=== PATIENT | female | born 1970 | race Caucasian/White ===

== ENCOUNTER → 2022-03-14 | Outpatient (CLI) | payer BC ==
--- NOTE | 2022-03-15 07:59 | MM ---
Reason for Exam: Screening (asymptomatic). Baseline mammogram. Patient History: Menarche at age 12. First Full-Term at age 29. Last menstrual period: 12/21/2021 Risk Values: Sujatha 5 year model risk: 1.1%. NCI Lifetime model risk: 9.7%. Prior Study Comparison: Patient's first Mammogram. Tissue Density: The breast tissue is heterogeneously dense. This may lower the sensitivity of mammography. Findings: Analyzed By CAD. There is no suspicious group of microcalcifications or new suspicious mass in either breast. Overall Assessment: Negative, BI-RAD 1 Management: Screening Mammogram of both breasts in 1 year. A clinical breast exam by your physician is recommended on an annual basis and results should be correlated with mammographic findings. Electronically signed and approved by: Alvaro Cabrera M.D. Radiologis
== END | disposition home or self-care (01) ==
LOC: RADMAMWWP 11:02
PROVIDERS: ATTEND Internal Medicine
DX: Z12.31 Encounter for screening mammogram for malignant neoplasm of breast (principal)
CPT/HCPCS: 77063; 77067

== ENCOUNTER → 2022-06-03 | Outpatient (CLI) | payer BC ==
[2022-06-03 14:41] LABS: Basophils # (A) 0.05 X 10*3/uL (0.00-0.10); Basophils % (A) 0.5 %; Eosinophils % (A) 5.4 %; HCT 44.7 % (37.2-46.3); HGB 14.2 g/dL (12.0-15.0); Immature Grans, Automated 0.3 %; Lymphocytes # (A) 1.24 X 10*3/uL (0.90-5.00); Lymphocytes % (A) 13.3 %; MCHC 31.8 g/dL (32.0-37.0); MCV 78.8 fL (80.0-97.0); Mean Platelet Volume 9.7 fL (9.5-12.2); Monocytes # (A) 0.46 X 10*3/uL (0.20-1.00); NRBC Per 100 WBC 0 /100 WBCS (0.0-0.0); Neutrophils # (A) 7.01 X 10*3/uL (1.80-7.70); Neutrophils % (A) 75.5 %; Platelet Count 401 X 10*3/uL (140-440); RBC 5.67 X 10*6/uL (4.10-5.20); WBC 9.29 X 10*3/uL (4.50-10.00)
[2022-06-03 14:50] LABS: African American GFR (CKD) 85.8 (60.0-200.0); Blood Urea Nitrogen 10.6 mg/dL (9.0-27.0); Potassium 4.1 mmol/L (3.5-5.5)
== END | disposition home or self-care (01) ==
LOC: LABPAT 09:00
PROVIDERS: ATTEND Obstetrics & Gynecology
DX: Z01.812 Encounter for preprocedural laboratory examination (principal); D25.9 Leiomyoma of uterus, unspecified
CPT/HCPCS: 36415; 80051; 82565; 82947; 84520; 85025; 87086

== ENCOUNTER 2022-06-11 05:50 | Inpatient (IN) | payer BC ==
[2022-06-07 10:13] VITALS: BMI 32.5
[2022-06-11] MEDS ORDERED: HYDROmorphone 0.5 MG/0.5 ML SYRINGE IVP PRN (06:03)
[2022-06-11] MEDS ORDERED: LACTATED RINGERS 1,000 ML IV SCH (06:03)
[2022-06-11] MEDS ORDERED: DEXAMETHASONE SOD PHOSPHATE 4 MG/ML 1 ML VIAL IV ONE (06:03)
[2022-06-11] MEDS ORDERED: ONDANSETRON 4 MG/2 ML VIAL IVP ONE (06:03)
[2022-06-11] MEDS ORDERED: LACTATED RINGERS 1,000 ML IV ONE (06:20)
[2022-06-11] MEDS ORDERED: MIDAZOLAM 2 MG/2 ML VIAL IVP ONE (06:44)
[2022-06-11] MEDS ORDERED: hydrALAZINE HCL 20 MG/ML 1 ML VIAL IVP ONE (06:45)
[2022-06-11] MEDS ORDERED: METOPROLOL TARTRATE 5 MG/5 ML VIAL IVP ONE (07:10)
[2022-06-11] MEDS: LACTATED RINGERS 1,000 ML IV ONE ×2 (08:25→12:55)
[2022-06-11] MEDS ORDERED: LORazepam 2 MG/ML INJ IV STA (08:35)
[2022-06-11] MEDS ORDERED: amLODIPine 5 MG TAB PO SCH (10:00)
--- NOTE | 2022-06-11 10:02 | P.HPIM ---
History of Present Illness H&P Date: 06/11/22 Chief Complaint: HTN Patient is a 51-year-old female with dysmenorrhea, uterine fibroids, and hypothyroidism with initially presented to the hospital for hysterectomy. Bone preop she was discovered to have severely elevated blood pressures at 213/125. She was given hydralazine and metoprolol without significant improvement. I was called by Dr. Olivera to admit the patient for hypertensive urgency. Patient seen and examined at bedside. She reports that she has a history of whitecoat hypertension. She states her blood pressure is commonly greater than 180 when in the office being seen. She does monitor her blood pressures at home. She states she last checked home blood pressure about 2 weeks ago. She states that her low pressures at home typically run 130s to 140s over 80s to 90s. She is currently feeling very upset and anxious about her procedure being canceled. She states that everything to get here to the hospital to have the procedure done. She is upset and crying. She denies any current chest pain, shortness of breath, headache, lightheadedness, dizziness, changes in vision. She denies any nausea. She reports she was in her usual state of health other than her pain and bleeding issues prior to hospitalization. Denies family hx of heart disease in partents and siblings. Pertinent positives and negatives as discussed in HPI, a complete review of systems was performed and all other systems are negative. Vital signs reviewed General: nontoxic, no distress, appears at stated age Derm: warm, dry Head: atraumatic, normocephalic, symmetric Eyes: EOMI, no lid lag, anicteric sclera, pupils equal round reactive to light ENT: Nose and ears atraumatic, no thrush, no pharyngeal erythema Neck: No thyromegaly, no cervical lymphadenopathy, trachea midline, supple Mouth: no lip lesion, mucus membranes moist Cardiovascular: S1S2 reg, no murmur, positive posterior tibial pulse bilateral, no edema, capillary refill less than 2 seconds Lungs: clear to auscultation bilateral, no rhonchi, no rales, no wheeze, no accessory muscle use Abdominal: soft, nontender to palpation, no guarding, no appreciable organomegaly, normal bowel sounds Ext: no gross muscle atrophy, muscle strength 5 out of 5 in upper extremities, no contractures Neuro: CN II-XII grossly intact, no focal neuro deficits Psych: Alert, oriented, anxious, upset crying. Assessment/Plan: Hypertensive urgency -Patient without underlying diagnosed hypertension, though it appears she is likely hypertension stage I -Ativan 1 now due to anxiety component. -Status post hydralazine and metoprolol - follow bp - Place patient in observation - BP was still eveleated but much improved after 1 hour, Norvasc X 1 now. Likelt home this afternoon if SBP <180 with close outpatient follow up Dysmenorrhea - OUtpatient follow up with Dr. Olivera Case discussed and would like BP controlled before surgery and patient optimized by PCP Hypothyroidism with hx of goiter - Levothyroxine - suggest outpatient TSH given HTN The patient is admitted with an anticipated less than 2 midnight stay for evaluation of [HTN Urgency]. DVT prophylaxis: SCDs Discussed with: Patient, nursing Anticipated discharge date: this afternoon or in AM pending BP control. Anticipated discharge place: home A total of 65 minutes was spent on the care of this complex patient more than 50% of the time was spent in counseling and care coordination. Past Medical History Past Medical History: Thyroid Disorder Additional Past Medical History / Comment(s): HX GOITER-HAD THYROID REMOVED History of Any Multi-Drug Resistant Organisms: None Reported Past Surgical History: Section Additional Past Surgical History / Comment(s): C-SEC X 3. THYROIDECTOMY w/ goiter removed Past Anesthesia/Blood Transfusion Reactions: Postoperative Nausea & Vomiting (PONV) Additional Past Anesthesia/Blood Transfusion Reaction / Comment(s): no blood transfusion hx Smoking Status: Never smoker - Past Family History Mother Family Medical History: Cancer Additional Family Medical History / Comment(s): pancreatic CA at age 58 Medications and Allergies Home Medications Medication Instructions Recorded Confirmed Type Levothyroxine Sodium [Synthroid] 150 mcg PO QAM 05/01/22 06/07/22 History Allergies Allergy/AdvReac Type Severity Reaction Status Date / Time No Known Allergies Allergy Verified 06/07/22 10:06 Physical Exam Osteopathic Statement: *. No significant issues noted on an osteopathic structural exam other than those noted in the History and Physical/Consult. Vitals: Vital Signs Temp Pulse Resp BP BP Pulse Ox 06/11/22 09:30 82 18 184/97 96 06/11/22 09:00 94 18 199/113 98 06/11/22 08:25 97.5 F L 93 18 217/125 98 06/11/22 07:23 213/127 06/11/22 07:18 79 18 213/127 97 06/11/22 07:09 84 16 214/109 98 06/11/22 06:51 90 18 193/108 96 06/11/22 06:15 98.5 F 90 18 238/131 98 Intake and Output 06/10/22 06/11/22 06/11/22 22:59 06:59 14:59 Intake Total 500 Balance 500 Intake: IV 500 Other: Weight 91.7 kg Thrombosis Risk Factor Assmnt - Choose All That Apply Each Factor Represents 1 point: Age 41-60 years, History of: Thrombosis Risk Factor Assessment Total Risk Factor Score: 2 Thrombosis Risk Factor Assessment Level: Low Risk
[2022-06-11] MEDS ORDERED: LORazepam 1 MG/0.5 ML VIAL IV STA (12:21)
[2022-06-11] MEDS ORDERED: cloNIDine HCL 0.1 MG TAB PO PRN (12:22)
[2022-06-11] MEDS ORDERED: amLODIPine 5 MG TAB PO STA (16:08)
[2022-06-11] MEDS ORDERED: cloNIDine HCL 0.2 MG TAB PO PRN (16:11)
[2022-06-11] MEDS: diazePAM 2 MG TAB PO PRN (16:16)
[2022-06-11 16:34] LABS: Anisocytosis Slight; HCT 48.3 % (34.0-46.0); HGB 15.1 gm/dL (11.4-16.0); MCH 25.4 pg (25.0-35.0); MCHC 31.4 g/dL (31.0-37.0); Mean Platelet Volume 7.2; Microcytosis Slight; Platelet Count 368 k/uL (150-450); RBC 5.96 m/uL (3.80-5.40); RDW 16.9 % (11.5-15.5); WBC 12.4 k/uL (3.8-10.6)
[2022-06-11 16:42] LABS: African American GFR (CKD) >90 (>60 ml/min/1.73 sqM); Anion Gap 11 mmol/L; Blood Urea Nitrogen 12 mg/dL (7-17); Calcium 9.1 mg/dL (8.4-10.2); Carbon Dioxide 25 mmol/L (22-30); Chloride 100 mmol/L (98-107); Glucose 123 mg/dL (74-99); Magnesium 1.7 mg/dL (1.6-2.3); Non-African American GFR(CKD) 86 (>60 ml/min/1.73 sqM); Sodium 136 mmol/L (137-145)
[2022-06-11] MEDS ORDERED: METOPROLOL TARTRATE 12.5 MG TAB PO STA (18:09)
[2022-06-11] MEDS: METOPROLOL TARTRATE 12.5 MG TAB PO SCH (19:54)
[2022-06-12] MEDS: METOPROLOL TARTRATE 12.5 MG TAB PO SCH (07:56)
[2022-06-12] MEDS ORDERED: METOPROLOL TARTRATE 25 MG TAB PO SCH (09:00)
[2022-06-12] MEDS ORDERED: amLODIPine 10 MG TAB PO SCH (09:00)
[2022-06-12 11:39] VITALS: TEMP 97.4
[2022-06-12] MEDS: diazePAM 2 MG TAB PO PRN (11:56)
[2022-06-12] MEDS ORDERED: LEVOTHYROXINE 75 MCG TAB PO SCH (13:00)
[2022-06-12 14:54] VITALS: BP 122/75; PULSE 68; RESP 18
--- NOTE | 2022-06-12 14:57 | P.DS ---
Providers Date of admission: 06/11/22 11:09 Expected date of discharge: 06/12/22 Attending physician: Daphne Allen DO Primary care physician: Anne Sullivan - Discharge Diagnosis(es) (1) Hypertensive urgency Current Visit: Yes Status: Acute Hospital Course: Admitting diagnosis: Hypertensive urgency Discharge diagnosis: Hypertension controlled Dysmenorrhea Uterine fibroids Hypothyroid Obesity Anxiety Patient is a 51-year-old female with dysmenorrhea, uterine fibroids, and hypothyroidism with initially presented to the hospital for hysterectomy. Bone preop she was discovered to have severely elevated blood pressures at 213/125. She was given hydralazine and metoprolol without significant improvement. Hospitalist was called by Dr. Olivera to admit the patient for hypertensive urgency. Patient seen and examined at bedside. She reports that she has a history of white coat hypertension. She states her blood pressure is commonly greater than 180 when in the office being seen. She does monitor her blood pressures at home. She states she last checked home blood pressure about 2 weeks ago. She states that her low pressures at home typically run 130s to 140s over 80s to 90s. She is currently feeling very upset and anxious about her procedure being canceled. She states that everything to get here to the hospital to have the procedure done. She is upset and crying. She denies any current chest pain, shortness of breath, headache, lightheadedness, dizziness, changes in vision. She denies any nausea. She reports she was in her usual state of health other than her pain and bleeding issues prior to hospitalization. Denies family hx of heart disease in partents and siblings. Pertinent positives and negatives as discussed in HPI, a complete review of systems was performed and all other systems are negative. General: [non toxic], [no distress], [appears at stated age] Derm: [warm], [dry] Head: [atraumatic], [normocephalic], [symmetric] Eyes: [EOMI], [no lid lag], [anicteric sclera] Mouth: [no lip lesion], [mucus membranes moist] Cardiovascular: [S1S2 reg], [no murmur], [positive posterior tibial pulse bilateral], Lungs: [CTA bilateral], [no rhonchi, no rales] , [no accessory muscle use] Abdominal: [soft], [ nontender to palpation], [no guarding], [no appreciable organomegaly] Ext: [no gross muscle atrophy], [no edema], [no contractures] Neuro: [ CN II-XI grossly intact], [no focal neuro deficits] Psych: [Alert], [oriented], [anxious] Clinical Course: Hypertensive urgency resolved -Patient without underlying diagnosed hypertension, though it appears she is likely hypertension stage I -Benzodiazapines prn anxiety provided -Clonidine, metoprolol, and amlodipine prescribed - follow bp Dysmenorrhea - Outpatient follow up with Dr. Olivera Case discussed and would like BP controlled before surgery and patient optimized by PCP Hypothyroidism with hx of goiter - Levothyroxine - TSH within normal limits Diet Cardiac Activity as tolerated Disposition Home f/u with PCP in 3-7 days f/u with CONVEYOR OPERATOR in 1-2 weeks Patient Condition at Discharge: Fair Plan - Discharge Summary Discharge Rx Participant: Yes New Discharge Prescriptions: New cloNIDine HCL [Catapres] 0.2 mg PO TID PRN #90 tab PRN Reason: Blood Pressure - High Metoprolol Tartrate [Lopressor] 25 mg PO BID #60 tab amLODIPine [Norvasc] 10 mg PO DAILY #30 tab Levothyroxine Sodium [Synthroid] 150 mcg PO DAILY@0630 tab Continue Levothyroxine Sodium [Synthroid] 150 mcg PO QAM Discharge Medication List Levothyroxine Sodium [Synthroid] 150 mcg PO QAM 05/01/22 [History] Levothyroxine Sodium [Synthroid] 150 mcg PO DAILY@0630 tab 06/12/22 [Rx] Metoprolol Tartrate [Lopressor] 25 mg PO BID #60 tab 06/12/22 [Rx] amLODIPine [Norvasc] 10 mg PO DAILY #30 tab 06/12/22 [Rx] cloNIDine HCL [Catapres] 0.2 mg PO TID PRN #90 tab 06/12/22 [Rx] Discharge Disposition: HOME SELF-CARE Plan of Treatment: FOLLOW-UP WITH PCP IN 2-3 DAYS FOR HOSPITAL FOLLOW-UP. FOLLOW-UP WITH CONVEYOR OPERATOR FOR HYSTERECTOMY IN 1-2 WEEKS.
== END 2022-06-12 15:36 | disposition home or self-care (01) | DRG 305 ==
LOC: OR 05:50 → 3SCARD 11:09
PROVIDERS: ADMIT Internal Medicine; ATTEND Internal Medicine
DX: I16.0 Hypertensive urgency (principal); F41.9 Anxiety disorder, unspecified; N94.6 Dysmenorrhea, unspecified; E89.0 Postprocedural hypothyroidism; Z53.09 Procedure and treatment not carried out because of other contraindication; Z68.33 Body mass index [BMI] 33.0-33.9, adult; E04.9 Nontoxic goiter, unspecified; E66.9 Obesity, unspecified; I10 Essential (primary) hypertension; Z79.890 Hormone replacement therapy; Z90.710 Acquired absence of both cervix and uterus
CPT/HCPCS: 80048; 83735; 84443; 85027; 86850; 86900; 86901

== ENCOUNTER → 2022-07-29 | Outpatient (CLI) | payer BC ==
[2022-07-29 11:17] LABS: Appearance,Urine Clear (Clear); Bilirubin,Urine Negative (Negative); Blood,Urine Negative (Negative); Color,Urine Light Yellow; Glucose,Urine (UA) Negative (Negative); Ketones,Urine Negative (Negative); Leukocyte Esterase,Urine Negative (Negative); Nitrite,Urine Negative (Negative); PH, Urine 5.5 (5.0-8.0); Protein,Urine Negative (Negative); Specific Gravity,Urine 1.018 (1.001-1.035); Urobilinogen,Urine <2.0 mg/dL (<2.0)
[2022-07-29 15:35] LABS: Basophils # (A) 0.05 X 10*3/uL (0.00-0.10); Basophils % (A) 0.6 %; Eosinophils # (A) 0.49 X 10*3/uL (0.04-0.35); Eosinophils % (A) 5.5 %; HCT 46.9 % (37.2-46.3); HGB 15.3 g/dL (12.0-15.0); Immature Grans, Automated 0.3 %; Lymphocytes # (A) 1.14 X 10*3/uL (0.90-5.00); Lymphocytes % (A) 12.9 %; MCH 26.8 pg (27.0-32.0); MCHC 32.6 g/dL (32.0-37.0); MCV 82.1 fL (80.0-97.0); Mean Platelet Volume 9.8 fL (9.5-12.2); Monocytes # (A) 0.47 X 10*3/uL (0.20-1.00); Monocytes % (A) 5.3 %; NRBC Per 100 WBC 0 /100 WBCS (0.0-0.0); Neutrophils # (A) 6.67 X 10*3/uL (1.80-7.70); Neutrophils % (A) 75.4 %; Platelet Count 390 X 10*3/uL (140-440); RBC 5.71 X 10*6/uL (4.10-5.20); RDW 15.7 % (11.5-14.5); WBC 8.85 X 10*3/uL (4.50-10.00)
[2022-07-29 16:15] LABS: Anion Gap 10.7 mmol/L (10.00-18.00); Blood Urea Nitrogen 12.4 mg/dL (9.0-27.0); Carbon Dioxide 26.9 mmol/L (20.0-27.5); Non-African American GFR(CKD) 78.6 (60.0-200.0); Potassium 4.7 mmol/L (3.5-5.5)
== END | disposition home or self-care (01) ==
LOC: LABPAT 08:51
PROVIDERS: ATTEND Obstetrics & Gynecology Obstetrics
DX: Z01.818 Encounter for other preprocedural examination (principal)
CPT/HCPCS: 80051; 81003; 82565; 82947; 84520; 85025

== ENCOUNTER 2022-08-05 07:32 | Day surgery (SDC) | payer BC ==
[2022-07-30 14:32] VITALS: BMI 32.3
[2022-08-05] MEDS ORDERED: LACTATED RINGERS 1,000 ML IV SCH (07:48)
[2022-08-05] MEDS ORDERED: ONDANSETRON 4 MG/2 ML VIAL ONE (08:10)
[2022-08-05] MEDS ORDERED: DEXAMETHASONE SOD PHOSPHATE 4 MG/ML 1 ML VIAL IV ONE (08:25)
[2022-08-05] MEDS ORDERED: ONDANSETRON 4 MG/2 ML VIAL IVP ONE (08:25)
[2022-08-05] MEDS ORDERED: SCOPOLAMINE 1 MG/72 HR PATCH TRANSDERM ONE (08:25)
[2022-08-05] MEDS ORDERED: MIDAZOLAM 2 MG/2 ML VIAL IV ONE (08:34)
[2022-08-05] MEDS ORDERED: ONDANSETRON 4 MG/2 ML VIAL IVP PRN (08:43)
[2022-08-05] MEDS ORDERED: NALBUPHINE 10 MG/ML (1 ML AMP) IV PRN (08:43)
[2022-08-05] MEDS ORDERED: NALOXONE 0.4 MG/ML 1 ML VIAL IV PRN (08:43)
[2022-08-05] MEDS ORDERED: HYDROmorphone 0.5 MG/0.5 ML SYRINGE IVP PRN (08:43)
--- NOTE | 2022-08-05 08:44 | P.ANPRN ---
Procedure Note - Anesthesia - Epidural/Spinal Spinal Time Out Performed: Yes Date of Procedure: 08/05/22 Procedure Start Time: 08:33 Procedure Stop Time: 08:44 Location of Patient: PreOp Indication: Acute Post-Operative Pain, Requested by Surgeon Sedation Type: Sedate with meaningful contact maintained Preparation: Sterile Dressing Position: Sitting Catheter: None Needle Guage: 25 Narrative: bupivacaine 0.75% 5 mg + duramorph 0.3 mg + fentanyl 25 mcg Blood Aspirated: No Pain Paresthesia on Injection Noted: No Events: Uneventful and Well Tolerated
--- NOTE | 2022-08-05 09:00 | P.HPOB ---
History of Present Illness H&P Date: 08/05/22 Chief Complaint: Enlarged uterus, uterine fibroids This is a 51-year-old female that presents for robotic-assisted vaginal hysterectomy with bilateral salpingectomy, diagnostic cystoscopy. Patient was seen in the office ultrasound was performed enlarged uterus of 16 cm was appreciated with 8-9 cm uterine fibroid. Patient is a known patient of Dr. Womack's, patient was seen for increasing dysmenorrhea, and heavy menstrual bleeding. Patient notes her menstrual cycles to be slightly irregular. An extended bleeding pattern is appreciated. ultrasound was obtained at that time. Patient does elect definitive treatment given ultrasound findings. Past Medical History Past Medical History: Hypertension, Thyroid Disorder Additional Past Medical History / Comment(s): HX GOITER, hx migraines, History of Any Multi-Drug Resistant Organisms: None Reported Past Surgical History: Section Additional Past Surgical History / Comment(s): C-SEC X 3, THYROIDECTOMY, surgery to remove scar tissue from C/S incision Past Anesthesia/Blood Transfusion Reactions: Postoperative Nausea & Vomiting (PONV) Additional Past Anesthesia/Blood Transfusion Reaction / Comment(s): no blood transfusion hx Smoking Status: Never smoker - Past Family History Mother Family Medical History: Cancer Additional Family Medical History / Comment(s): pancreatic CA at age 58 Medications and Allergies Home Medications Medication Instructions Recorded Confirmed Type Levothyroxine Sodium [Synthroid] 150 mcg PO QAM 05/01/22 08/05/22 History Metoprolol Tartrate [Lopressor] 25 mg PO BID #60 tab 06/12/22 08/05/22 Rx cloNIDine HCL [Catapres] 0.2 mg PO TID PRN #90 tab 06/12/22 08/05/22 Rx Losartan Potassium [Cozaar] 100 mg PO QAM 07/30/22 08/05/22 History Multivitamins, Thera [Multivitamin 1 tab PO DAILY 07/30/22 07/30/22 History (formulary)] Vitamin B12(Dose Unknown) 1 tab PO DIRECTED 07/30/22 08/05/22 History Vitamin C(Dose Unknown) 1 tab PO DIRECTED 07/30/22 08/05/22 History Vitamin D(Dose Unknown) 1 tab PO DAILY 07/30/22 08/05/22 History Allergies Allergy/AdvReac Type Severity Reaction Status Date / Time No Known Allergies Allergy Verified 08/05/22 07:53 Exam Osteopathic Statement: *. No significant issues noted on an osteopathic structural exam other than those noted in the History and Physical/Consult. Vital Signs Temp Pulse Resp BP Pulse Ox 08/05/22 08:49 61 16 125/75 97 08/05/22 07:57 97.4 F L 73 16 167/102 100 Intake and Output 08/04/22 08/05/22 08/05/22 22:59 06:59 14:59 Other: Weight 90.6 kg Targeted physical exam is performed in this date and cloud engagement partner a well-nourished well-developed non female in no acute distress, breathing is nonlabored, heart has a regular rate and rhythm, abdomen is obese soft nontender, genitourinary exam the uterus is noted to be grossly enlarged, no adnexal masses are appreciated Assessment and Plan (1) Enlarged uterus Current Visit: Yes Status: Acute Code(s): N85.2 - HYPERTROPHY OF UTERUS SNOMED Code(s): 315863467 (2) Uterine fibroid Current Visit: Yes Status: Acute Code(s): D25.9 - LEIOMYOMA OF UTERUS, UNSPECIFIED SNOMED Code(s): 68251187 Plan: 51-year-old female with known enlarged uterus and uterine fibroid. Patient elects definitive treatment today. Patient is counseled on risks of surgery given her prior C-sections. Risser reviewed including but not limited to infection, bleeding, damage to bladder, bowel, ureteric injury.. Patient states understanding. She does wish definitive treatment once again with robotic cyst vaginal hysterectomy, bilateral salpingectomy, diagnostic cystoscopy.
[2022-08-05] MEDS ORDERED: BUPIVACAINE (PF) 0.25% 30 ML VIAL SQ ONE ×2 (10:21)
[2022-08-05] MEDS ORDERED: Acetaminophen-Codeine 300-30mg TAB PO PRN ×2 (12:54)
[2022-08-05] MEDS ORDERED: ACETAMINOPHEN IV (For NPO) 1,000 MG in EMPTY BAG 1 BAG IVPB ONE (12:54)
[2022-08-05] MEDS ORDERED: SIMETHICONE 80 MG CHEWABLE PO PRN (12:54)
[2022-08-05] MEDS ORDERED: cloNIDine HCL 0.2 MG TAB PO PRN (12:56)
--- NOTE | 2022-08-05 13:03 | P.OP ---
Date of Procedure: 08/05/22 Preoperative Diagnosis: Enlarged uterus, uterine fibroid, heavy menstrual bleeding Postoperative Diagnosis: Same Procedure(s) Performed: Robotic cyst vaginal hysterectomy, diagnostic cystoscopy, lysis of adhesions Anesthesia: JOHANN Surgeon: Sydni Olivera Dry Janitor #1: Manuela Lobato Estimated Blood Loss (ml): 100 IV fluids (ml): 1,400 Urine output (ml): 100 Pathology: other (Uterus cervix multiple fibroid pieces) Condition: stable Disposition: PACU Indications for Procedure: Irregular heavy menstrual bleeding, known uterine fibroid with desire for definitive treatment. Operative Findings: Grossly enlarged uterus with fundal fibroid. Description of Procedure: Patient was taken back to the operating suite where general anesthesia was obtained without difficulty by the anesthesia department. Patient was then prepped and draped in normal sterile fashion in the dorsal lithotomy position. A To catheter was placed per sterile technique. A weighted speculum was placed in the posterior vaginal vault the anterior lip the cervix was visualized and grasped with a single-tooth tenaculum. The [facility] uterine manipulator was advanced into the uterus as a means to manipulate the uterus throughout the procedure. The cervical cap was placed snugly against the cervix and all instruments were removed from the patient's vaginal vault. Attention turned the patient's abdomen. Approximately 2 finger breaths above the umbilicus a small skin incision is made. Through this incision the various needles placed. Once the Veress needle was deemed to be in the appropriate position with a drop of CO2 pressure CO2 insufflation was allowed to occur. At this time an 8 mm trocar and sleeve is placed through the skin incision and toward the pneumoperitoneum under direct visualization. The above-noted findings are visualized. At this time the additional port sites are placed 10 cm lateral lateral and 370 m inferior to the midline port these are 8 mm operative ports and the da Awa machine. In the left upper quadrant a 12 mm trocar and sleeve is placed under direct visualization. Attention was then turned to a large omental adhesion to the anterior abdominal wall. This was taken down sharply with good hemostasis being appreciated throughout. Once this was taken down the uterus was elevated. The uterine fibroid was visualized. The patient's left adnexa was visualized and the uterine ovarian ligament was visualized coagulated distally and proximally and divided. This continued through the broad and toward the round which was coagulated and transected. Hemostasis. The adhesions were appreciated from her prior C-sections. These were taken down sharply. The bladder flap was then created. The infant branch the uterine artery was visualized coagulated and transected. Hemostasis was appreciated throughout. Attention was then turned the patient's right adnexa. The right uterine ovarian ligament was visualized coagulated and transected. Hemostasis was noted. This continued through the broad and toward the round ligament which was coagulated and transected. The bladder flap from the right was then carefully developed. At this point a Ray-Keila was introduced into the abdomen as a means to carefully dissect the bladder away from the operating field even further. Dense anterior adhesions were taken down sharply. Urine was noted be clear in the To catheter and tube. At this point the ascending branch of the uterine artery on the right was visualized coagulated and transected. Hemostasis was appreciated. At this time the only remaining attachment was a vaginal attachment therefore colpotomy incision was made and circumference of fashion. The uterus was then freed from the vaginal cuff. At this time the fundal fibroid was transected and cut into 3 pieces. The uterus was delivered from the vaginal cuff along with the pieces of the fibroid. 2 were placed in Endo Catch bags to use removal. At this time the pelvis was then copiously irrigated. Hewas appreciated. The vaginal cuff was closed 0 Vicryl with multiple [id number] sutures. The cuff was irrigated once again and found to be hemostatic. The omental adhesions were visualized and found to be slightly oozy therefore Surgicel powder was placed along. The rest of the Surgicel powder was then placed along the vaginal cuff. Hemostasis was noted. At this time all instruments removed from the patient's abdomen. Attention was then turned the patient's To catheter which was noted to have clear yellow urine in the To tube. This was removed without difficulty. Cystoscopy was then performed. Cystoscope was placed through the urethra and toward the bladder bladder bubbles appreciated complete survey of the bladder revealed an intact cavity both ureteral orifices were noted spilling clear yellow urine. At this time the cystoscope was removed and the To catheter was replaced. The vaginal vault was inspected and no lacerations were appreciated. At this time the attention turned the patient's abdomen once again. The skin incisions were closed with 4-0 Vicryl in a subcu fashion. Steri-Strips and sterile dressings were applied. All counts were noted to be correct 2 at the end of the procedure, patient tolerated procedure well and was taken recovery room awake in stable condition.
[2022-08-05] MEDS: SENNOSIDES-DOCUSATE SODIUM 1 EACH TAB PO SCH (21:46)
[2022-08-05] MEDS: METOPROLOL TARTRATE 25 MG TAB PO SCH (21:46)
[2022-08-05] MEDS: IBUPROFEN 600 MG TAB PO PRN (23:35)
[2022-08-06 04:51] LABS: Basophils % (A) 0 %; Eosinophils % (A) 0 %; HCT 38.9 % (34.0-46.0); HGB 12.4 gm/dL (11.4-16.0); Lymphocytes # (A) 1.1 k/uL (1.0-4.8); Lymphocytes % (A) 10 %; MCH 27.5 pg (25.0-35.0); MCHC 31.9 g/dL (31.0-37.0); Mean Platelet Volume 7.7; Monocytes # (A) 0.5 k/uL (0-1.0); Monocytes % (A) 4 %; Neutrophils # (A) 9.8 k/uL (1.3-7.7); Neutrophils % (A) 85 %; Platelet Count 332 k/uL (150-450); RBC 4.51 m/uL (3.80-5.40); RDW 15.2 % (11.5-15.5); WBC 11.6 k/uL (3.8-10.6)
[2022-08-06 04:58] LABS: MCV 86.3 fL (80.0-100.0)
[2022-08-06] MEDS ORDERED: LEVOTHYROXINE 75 MCG TAB PO SCH (06:30)
--- NOTE | 2022-08-06 06:33 | P.PN ---
Progress Note - Text Progress Note Date: 08/06/22 POD 1 from [facility] with spinal duramorph. no pain overnight. able to ambulate, minimal pruritis. pain 10/01 today. able to micturate and pass gas.
--- NOTE | 2022-08-06 08:43 | P.DS ---
Providers Date of admission: 08/05/2022 Expected date of discharge: 08/06/22 Attending physician: Sydni Olivera Primary care physician: Anne Sullivan - Discharge Diagnosis(es) (1) Enlarged uterus Current Visit: Yes Status: Acute (2) Uterine fibroid Current Visit: Yes Status: Acute (3) S/P laparoscopic hysterectomy Current Visit: Yes Status: Acute Hospital Course: This is a 51-year-old female that presented yesterday 08/05 for scheduled robotic cyst vaginal hysterectomy with diagnostic cystoscopy. For full details on this patient please see the dictated history and physical Patient had known irregular heavy menstrual cycles with enlarged uterus, uterine fibroids. Patient had been counseled extensively in the office regarding this procedure. Patient was taken back to the operating suite where procedure was performed without difficulty. For full details on the procedure please see the operative report. On this postoperative day #1 she is feeling well. She denies pain. We are awaiting spontaneous void. She denies vaginal bleeding. She denies nausea or vomiting is tolerating clear liquids. Patient Condition at Discharge: Good Plan - Discharge Summary Discharge Rx Participant: Yes New Discharge Prescriptions: No Action Levothyroxine Sodium [Synthroid] 150 mcg PO QAM cloNIDine HCL [Catapres] 0.2 mg PO TID PRN #90 tab PRN Reason: Blood Pressure - High Losartan Potassium [Cozaar] 100 mg PO QAM Multivitamins, Thera [Multivitamin (formulary)] 1 tab PO DAILY Vitamin C(Dose Unknown) 1 tab PO DIRECTED Vitamin B12(Dose Unknown) 1 tab PO DIRECTED Metoprolol Tartrate [Lopressor] 25 mg PO BID #60 tab Vitamin D(Dose Unknown) 1 tab PO DAILY Discharge Medication List Levothyroxine Sodium [Synthroid] 150 mcg PO QAM 05/01/22 [History] Metoprolol Tartrate [Lopressor] 25 mg PO BID #60 tab 06/12/22 [Rx] cloNIDine HCL [Catapres] 0.2 mg PO TID PRN #90 tab 06/12/22 [Rx] Losartan Potassium [Cozaar] 100 mg PO QAM 07/30/22 [History] Multivitamins, Thera [Multivitamin (formulary)] 1 tab PO DAILY 07/30/22 [History] Vitamin B12(Dose Unknown) 1 tab PO DIRECTED 07/30/22 [History] Vitamin C(Dose Unknown) 1 tab PO DIRECTED 07/30/22 [History] Vitamin D(Dose Unknown) 1 tab PO DAILY 07/30/22 [History] Follow up Appointment(s)/Referral(s): Sydni Olivera DO [Doctor of Osteopathic Medicine] - 2 Weeks Patient Instructions/Handouts: *Surgery [facility] - Scopalamine Patch Instructions, Laparoscopic Hysterectomy (DC), Laparoscopic Hysterectomy (GEN) Activity/Diet/Wound Care/Special Instructions: Patient is counseled on postoperative care. She is counseled she may have spotting/vaginal bleeding postoperatively. Incision care was reviewed. [id number] ibuprofen and Tylenol as needed for pain. She is asked to call the office and make a routine postoperative check in 2 weeks. Should she have any concerns prior to this appointment she is asked call the office. Discharge Disposition: HOME SELF-CARE
[2022-08-06] MEDS ORDERED: LOSARTAN 50 MG TAB PO SCH (09:00)
[2022-08-06 09:14] VITALS: BP 119/73; PULSE 73; RESP 14; TEMP 97.5
[2022-08-06] MEDS: METOPROLOL TARTRATE 25 MG TAB PO SCH (09:23)
[2022-08-06] MEDS: SENNOSIDES-DOCUSATE SODIUM 1 EACH TAB PO SCH (09:24)
[2022-08-06] MEDS: IBUPROFEN 600 MG TAB PO PRN ×2 (09:24→15:03)
[2022-08-06] MEDS ORDERED: ACETAMINOPHEN TAB 325 MG TAB PO PRN (12:56)
== END 2022-08-06 15:15 | disposition home or self-care (01) ==
LOC: OR 07:32 → 4FBP 15:55 → OR 08-06 15:15
PROVIDERS: ATTEND Obstetrics & Gynecology Obstetrics
DX: D25.1 Intramural leiomyoma of uterus (principal); N92.0 Excessive and frequent menstruation with regular cycle; N80.03 Adenomyosis of the uterus; G89.18 Other acute postprocedural pain; I10 Essential (primary) hypertension; E07.9 Disorder of thyroid, unspecified; Z80.8 Family history of malignant neoplasm of other organs or systems; Z79.899 Other long term (current) drug therapy
CPT/HCPCS: 81025; 86900; 86901; 85025; 86850; 88307; 58550; J2250; J1100; J0690; J2405

== ENCOUNTER → 2025-02-28 | Outpatient (CLI) | payer BC ==
--- NOTE | 2025-02-28 09:43 | MM ---
Reason for Exam: Screening (asymptomatic). Last mammogram was performed 3 year(s) and 0 month(s) ago. Patient History: Menarche at age 12. First Full-Term at age 29. Hysterectomy at age 50. Risk Values: Sujatha 5 year model risk: 1.3%. NCI Lifetime model risk: 9.3%. Prior Study Comparison: 03/14/2022 Bilateral MG 3D screening mammo w/cad, [facility]. Tissue Density: There are scattered areas of fibroglandular density. Findings: Analyzed By CAD. Benign-appearing bilateral axillary lymph nodes are present. There is no suspicious group of microcalcifications or new suspicious mass in either breast.Benign-appearing bilateral axillary lymph nodes are present. There is a new 8 mm circumscribed round mass in the middle of the centimeters distance from nipple. Overall Assessment: Incomplete: need additional imaging evaluation, BI-RAD 0 Management: Diagnostic Mammogram of the right breast. Diagnostic Breast Ultrasound of the right breast. Advised 3-D true lateral view to localize and then diagnostic targeted ultrasound right breast. Patient should continue monthly self-breast exams. A clinical breast exam by your physician is recommended on an annual basis. This exam should not preclude additional follow-up of suspicious palpable abnormalities. Note on Sujatha scores and lifetime risk: 1. A Sujatha score greater than 3% is considered moderate risk. If this is the case, consider specialist referral to assess eligibility for a risk reducing agent. 2. If overall lifetime risk for the development of breast cancer is 20% or higher, the patient may qualify for future screening with alternating mammogram and breast MRI. [facility], , 02/28/2025 9:42 AM. Electronically signed and approved by: Yuniel Wei M.D.
== END | disposition home or self-care (01) ==
LOC: RADMAMWWP 09:17
PROVIDERS: ATTEND Internal Medicine
DX: Z12.31 Encounter for screening mammogram for malignant neoplasm of breast (principal); R92.323 Mammographic fibroglandular density, bilateral breasts
CPT/HCPCS: 77063; 77067

== ENCOUNTER → 2025-03-02 | Outpatient (CLI) | payer BC ==
--- NOTE | 2025-03-02 08:12 | MM ---
Reason for Exam: Additional evaluation requested from abnormal screening. Last mammogram was performed 3 year(s) and 0 month(s) ago. Patient History: Menarche at age 12. First Full-Term at age 29. Hysterectomy at age 50. Risk Values: Sujatha 5 year model risk: 1.3%. NCI Lifetime model risk: 9.3%. Prior Study Comparison: 03/14/2022 Bilateral MG 3D screening mammo w/cad, [facility]. 02/28/2025 Bilateral MG 3D screening mammo w/cad, [facility]. Tissue Density: Right: There are scattered areas of fibroglandular density. Findings: Analyzed By CAD. An 8 mm oval circumscribed mass persists 8 - 9 cm distance from the nipple middle depth inferior aspect right breast. Overall Assessment: Incomplete: need additional imaging evaluation, BI-RAD 0 Management: Diagnostic Breast Ultrasound of the right breast. . Results were given to the patient verbally at the time of exam. Patient should continue monthly self-breast exams. A clinical breast exam by your physician is recommended on an annual basis. This exam should not preclude additional follow-up of suspicious palpable abnormalities. Note on Sujatha scores and lifetime risk: 1. A Sujatha score greater than 3% is considered moderate risk. If this is the case, consider specialist referral to assess eligibility for a risk reducing agent. 2. If overall lifetime risk for the development of breast cancer is 20% or higher, the patient may qualify for future screening with alternating mammogram and breast MRI. [facility], , 03/02/2025 8:09 AM. Electronically signed and approved by: Yuniel Wei M.D.
--- NOTE | 2025-03-02 08:31 | USB ---
Reason for Exam: Additional evaluation requested from abnormal screening. Patient History: Menarche at age 12. First Full-Term at age 29. Hysterectomy at age 50. Risk Values: Sujatha 5 year model risk: 1.3%. NCI Lifetime model risk: 9.3%. Technique: Method: Targeted. Prior Study Comparison: 03/14/2022 Bilateral MG 3D screening mammo w/cad, [facility]. 02/28/2025 Bilateral MG 3D screening mammo w/cad, [facility]. Findings: The lower outer quadrant of the right breast, the axilla of the right breast and the retroareolar of the right breast were scanned. Targeted ultrasound. At 7:00 position 9 cm distance from nipple there is oval circumscribed 7 x 3 x 7 mm avascular slightly hypoechoic to anechoic lesion tapering simple cyst. Benign-appearing lymph node in the right axilla also seen. Overall Assessment: Probably benign, BI-RAD 3 Management: Diagnostic Mammogram of the right breast in 6 months. Diagnostic Breast Ultrasound of the right breast in 6 months. Precautionary short-term follow-up study. A clinical breast exam by your physician is recommended on an annual basis and results should be correlated with mammographic findings. This exam should not preclude additional follow-up of suspicious palpable abnormalities. Results were given to the patient verbally at the time of exam. [facility], , 03/02/2025 8:28 AM. Electronically signed and approved by: Yuniel Wei M.D.
== END | disposition home or self-care (01) ==
LOC: RADMAMWWP 07:41
PROVIDERS: ATTEND Internal Medicine
DX: R92.8 Other abnormal and inconclusive findings on diagnostic imaging of breast (principal); R92.321 Mammographic fibroglandular density, right breast
CPT/HCPCS: 77061; 77065